=== PATIENT | female | born 1960 | race American Indian/Alaskan Native ===

== ENCOUNTER 2019-11-27 13:57 | Emergency (ER) | payer BC, MEDICAID, OTHER ==
[2019-11-27] MEDS ORDERED: Sodium Chloride 0.9% 10 ML Syringe FLUSH PRN (14:02)
--- NOTE | 2019-11-27 14:02 | EDM.PDOC ---
ED HPI GENERAL MEDICAL PROBLEM - General Chief Complaint: Chest Pain Stated Complaint: chest pains Time Seen by Provider: 11/27/19 14:01 Source of Information: Reports: Patient, Old Records, RN, RN Notes Reviewed History Limitations: Reports: No Limitations - History of Present Illness INITIAL COMMENTS - FREE TEXT/NARRATIVE: Pt presents to ER by POV with c/o left sided chest pain that started one week ago. She states it is worse with activity. Pt was at work today when she noticed an increase of the pain, and decided to come to the ER after the clinic told her they were not equipped to work up her chest pain there. Pt has not taken any medications today. Pt states the pain is worse with deep breaths and coughing. Denies fever, chills, shortness of breath, or any COVID exposures. 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, NSAIDS Left Chest Pain Score (Numeric/FACES): 7 - Related Data Allergies Allergy/AdvReac Type Severity Reaction Status Date / Time No Known Allergies Allergy Verified 11/27/19 14:13 Home Meds: Home Meds Acetaminophen [Pain Relief] 325 mg PO ASDIRECTED PRN 11/23/14 [History] Ibuprofen 400 mg PO ASDIRECTED PRN 11/23/14 [History] Past Medical History - Past Health History Medical/Surgical History: Denies Medical/Surgical History Other Musculoskeletal History: Hx of broken left arm 07/01/14 Social & Family History - Family History Family Medical History: Noncontributory - Tobacco Use Smoking Status *Q: Current Every Day Smoker Tobacco Use Within Last Twelve Months: Cigarettes Years of Tobacco use: 35 Packs/Tins Daily: 0.5 - Living Situation & Occupation Occupation: Employed ED ROS GENERAL - Review of Systems Review Of Systems: Comprehensive ROS is negative, except as noted in HPI. ED EXAM, GENERAL - Physical Exam Exam: See Below Exam Limited By: No Limitations General Appearance: Alert, WD/WN, No Apparent Distress Eye Exam: Bilateral Eye: Normal Inspection Nose: Normal Inspection Throat/Mouth: Normal Inspection, Normal Lips, Normal Voice, No Airway Compromise Head: Atraumatic, Normocephalic Neck: Normal Inspection, Supple, Non-Tender, Full Range of Motion Respiratory/Chest: No Respiratory Distress, Lungs Clear, Normal Breath Sounds, No Accessory Muscle Use, Chest Non-Tender Cardiovascular: Normal Peripheral Pulses, Regular Rate, Rhythm, No Edema, No Gallop, No JVD, No Murmur, No Rub GI/Abdominal: Normal Bowel Sounds, Soft, Non-Tender Back Exam: Normal Inspection Extremities: Normal Inspection, Normal Range of Motion, Non-Tender, Normal Ca pillary Refill, No Pedal Edema Neurological: Alert, Oriented, CN II-XII Intact, Normal Cognition, Normal Gait, No Motor/Sensory Deficits Psychiatric: Normal Affect, Normal Mood Skin Exam: Warm, Dry, Intact, Normal Color, No Rash EKG INTERPRETATION EKG Date: 11/27/19 Time: 14:06 Rhythm: Other (Sinus tach) Rate (Beats/Min): 106 [place]: Normal P-Wave: Present QRS: Other (early precordial R/S transition) ST-T: Normal QT: Normal Comparison: NA - No Prior EKG EKG Interpretation Comments: No acute ischemic changes. Course - Vital Signs Last Recorded V/S: Last Vital Signs Temp 97.7 F 11/27/19 14:12 Pulse 110 H 11/27/19 14:12 Resp 18 11/27/19 14:12 BP 170/84 H 11/27/19 14:12 Pulse Ox 99 11/27/19 14:12 - Orders/Labs/Meds Orders: Active Orders 24 hr Category Date Time Status EKG 12 Lead [EKG Documentation Completion] [RC] STAT Care 11/27/19 14:02 Active Peripheral IV Care [RC] . DIRECTED Care 11/27/19 14:03 Active Chest w Cont [CT] Stat Exams 11/27/19 14:51 Taken Sodium Chloride 0.9% [Saline Flush] Med 11/27/19 14:02 Active 10 ml FLUSH ASDIRECTED PRN Peripheral IV Insertion Adult [OM.PC] Stat Oth 11/27/19 14:02 Ordered Medication Orders Sodium Chloride (Saline Flush) 10 ml FLUSH ASDIRECTED PRN PRN Reason: Keep Vein Open Last Admin: 11/27/19 14:29 Dose: 10 ml Documented by: [email or web address] Labs: Laboratory Tests 06/29/20 06/29/20 06/29/20 Range/Units 14:10 14:10 14:10 WBC 15.3 H (5.0-10.0) 10^3/uL RBC 4.59 (4.2-5.4) 10^6/uL Hgb 14.4 (12.0-16.0) g/dL Hct 42.2 (37.0-47.0) % MCV 91.9 (80-100) fL MCH 31.4 (27.0-34.0) pg MCHC 34.1 (33.0-35.0) g/dL Plt Count 392 (150-450) 10^3/uL Neut % (Auto) 74.8 (42.2-75.2) % Lymph % (Auto) 18.9 L (20.5-50.1) % Gillespie % (Auto) 5.3 (2-8) % Eos % (Auto) 0.8 L (1.0-3.0) % Baso % (Auto) 0.2 (0.0-1.0) % D-Dimer, Quantitative 913 H (0-400) ng/mL Sodium 136 (136-145) mmol/L Potassium 3.3 L (3.5-5.1) mmol/L Chloride 102 (98-107) mmol/L Carbon Dioxide 22 (21-32) mmol/L Anion Gap 15.3 H (7-13) mEq/L BUN 14 (7-18) mg/dL Creatinine 0.86 (0.55-1.02) mg/dL Est Cr Clr Drug Dosing 51.84 mL/min Estimated GFR (MDRD) > 60 BUN/Creatinine Ratio 16.3 (No establ ref range) Glucose 136 H (74-99) mg/dL Calcium 10.5 H (8.5-10.1) mg/dL Total Bilirubin 0.2 (0.2-1.0) mg/dL AST 22 (15-37) U/L ALT 54 (14-59) U/L Alkaline Phosphatase 143 H (46-116) U/L Troponin I < 0.017 (0.000-0.056) ng/mL Total Protein 7.5 (6.4-8.2) g/dL Albumin 3.5 (3.4-5.0) g/dL Globulin 4.0 Albumin/Globulin Ratio 0.9 Lipase 134 (73-393) U/L Meds: Medications Generic Name Dose Route Start Last Admin Trade Name Freq PRN Reason Stop Dose Admin Sodium Chloride 10 ml 11/27/19 14:02 11/27/19 14:29 Saline Flush FLUSH 10 ml ASDIRECTED PRN Administration Keep Vein Open Discontinued Medications Generic Name Dose Route Start Last Admin Trade Name Stefani PRN Reason Stop Dose Admin Aspirin 324 mg 11/27/19 14:15 11/27/19 14:29 Aspirin PO 11/27/19 14:16 324 mg ONETIME ONE Administration Iopamidol 100 ml 11/27/19 14:51 11/27/19 15:16 Isovue-370 (76%) IVPUSH 11/27/19 14:52 60 ml ONETIME ONE Administration - Radiology Interpretation Free Text/Narrative:: XR Chest: negative chest per Rad. report. CT CHEST PE Study: negative study per Rad. report. Departure - Departure Time of Disposition: 15:51 Disposition: Home, Self-Care 01 Condition: Good Clinical Impression: Atypical chest pain, Pleuritic chest pain Instructions: Pleurisy, Nonspecific Chest Pain, Adult Forms: ED Department Discharge Additional Instructions: Rx: Dexamethasone 4mg Try to quit smoking. Follow up in clinic if not improving in 3 days. Sepsis Event Note (ED) - Focused Exam Vital Signs: Vital Signs Temp Pulse Resp BP Pulse Ox 11/27/19 14:12 97.7 F 110 H 18 170/84 H 99 - My Orders Last 24 Hours: My Active Orders 11/27/19 14:02 EKG 12 Lead [EKG Documentation Completion] [RC] STAT Sodium Chloride 0.9% [Saline Flush] 10 ml FLUSH ASDIRECTED PRN Peripheral IV Insertion Adult [OM.PC] Stat 11/27/19 14:03 Peripheral IV Care [RC] . DIRECTED 11/27/19 14:51 Chest w Cont [CT] Stat - Assessment/Plan Last 24 Hours: My Active Orders 11/27/19 14:02 EKG 12 Lead [EKG Documentation Completion] [RC] STAT Sodium Chloride 0.9% [Saline Flush] 10 ml FLUSH ASDIRECTED PRN Peripheral IV Insertion Adult [OM.PC] Stat 11/27/19 14:03 Peripheral IV Care [RC] . DIRECTED 11/27/19 14:51 Chest w Cont [CT] Stat
[2019-11-27 14:13] VITALS: BP 170/84; PULSE 110
[2019-11-27] MEDS ORDERED: Aspirin 81 MG Tab.Chew PO ONE (14:15)
[2019-11-27 14:38] LABS: ANION GAP 15.3 mEq/L (7-13); CHLORIDE,CL 102 mmol/L (98-107); SODIUM,NA 136 mmol/L (136-145)
[2019-11-27] MEDS ORDERED: Iopamidol 755 Mg/ML 100 ML Bottle IVPUSH ONE (14:51)
--- NOTE | 2019-11-27 15:12 | CR ---
EXAMINATION: Chest 1V Frontal SEX: Female AGE: 59 years CLINICAL HISTORY: 59-year-old female with CHEST PAIN. INTERPRETATION: No cardiopulmonary abnormality. Normal cardiac silhouette. External second helper leads. No pulmonary vascular congestion, cephalization of flow or signs of alveolar edema. Hypertrophic arthritic changes dorsal spine. No lung mass, hilar lymphadenopathy or focal lobar pneumonia. No atelectasis/collapse. No pneumothorax or pneumomediastinum. No free subdiaphragmatic air. Midline tracheal bronchial airway unremarkable. CONCLUSION: Negative exam.
--- NOTE | 2019-11-27 15:44 | CT ---
EXAMINATION: Chest w Cont SEX: Female AGE: 59 years CLINICAL HISTORY: 59-year-old 149 pound female with chest pain. Serum D dimer 913 (WBC 15,300). Scan technique: Volume acquisition of data from the chest (bony thorax, lungs and mediastinum) obtained during the intravenous administration 60 cc nonionic Isovue 370 contrast at 4.6 cc/s via injector while patient was lying supine on the Siemens multislice scanner [place], [place]. All data archived in the PACS system for storage, reformatting axial/sagittal/coronal planes and study (lung/mediastinal windows). Interpretation: 1. Patchy peripheral posterior segment pleural-parenchymal lower lobe atelectasis (R>L). 2. No sign of intraluminal filling defect or thrombus in main pulmonary artery circulation. No abnormal focal lobar oligemia or peripheral pleural-based infarct (negative [place] Sign). No pleural effusion. 3. Normal cardiac silhouette. No pericardial effusion. No pulmonary vascular congestion, alveolar edema or dependent pleural fluid accumulation. 4. No lung mass or hilar/mediastinal lymphadenopathy. 5. No focal lobar pneumonia. 6. No pneumothorax or pneumomediastinum. No air trapping. No cysts/bullous emphysematous lesions. 7. Hypertrophic spondylosis dorsal spine. No pathologic skeletal lesion, thoracic fracture or dislocation. CONCLUSION: Negative exam. No current evidence pulmonary embolism or infarct. No sign of lung mass, lobar pneumonia, heart failure or effusions. Arthritis dorsal spine.
== END 2019-11-27 16:15 | disposition home or self-care (01) ==
LOC: DL.ED 13:57
DX: R07.81 Pleurodynia (principal); R07.89 Other chest pain; F17.210 Nicotine dependence, cigarettes, uncomplicated
CPT/HCPCS: 36415; 71045; 71260; 80053; 83690; 84484; 85025; 85379; 93005; 99285; A9270; Q9967